=== PATIENT | male | born 1975 | race Caucasian/White ===

== ENCOUNTER 2023-07-26 18:48 | Emergency (ER) | payer OTHER, SELFPAY ==
[2023-07-26 18:59] VITALS: BP 170/98; PULSE 70; RESP 14; TEMP 36.9; O2SAT 98; BMI 29.1
--- NOTE | 2023-07-26 19:39 | CT_ITS ---
The [address] [address] Patient Name: THUAN TRAYLOR MRN: [id number] date: 1975 Sex: M Assigned Patient Location: ER Current Patient Location: Accession/Order Number: [id number] Exam Date: 07/26/2023 20:07 Report Date: 07/26/2023 20:32 At the request of: MARJ SUMMERS Procedure: CT head/brain wo con EXAM: CT scan of the head without contrast. Dose reduction technique used: Automated exposure control and/or adjustment of the mA and/or kV according to patient size and/or use of iterative reconstruction technique. REASON FOR EXAM: Headache COMPARISON: None FINDINGS: No intracranial hemorrhage, mass effect, midline shift, fractures or evidence of acute ischemic infarct. No hydrocephalus. Paranasal sinuses and mastoid air cells are clear. Remainder unremarkable. CT/CT head/brain wo con IMPRESSION: Negative head CT. Electronically authenticated by: CHRISTIANO REDDING Date: 07/26/2023 20:32
--- NOTE | 2023-07-26 19:40 | ED_ITS ---
HPI - Back Pain/Injury General Chief Complaint: Back Pain/Injury Stated Complaint: BACK PAIN Time Seen by Provider: 07/26/23 19:13 Source: patient Mode of arrival: walk-in Limitations: no limitations History of Present Illness HPI Narrative: Patient is a 48-year-old male who presents to the emergency department for multiple pain complaints. Patient is argumentative immediately on my entering the exam room. He does not want to answer any questions, he states that he has been to for pain management physicians in the last 2 years and no one will do anything for him. He states nothing works. He reports chronic pain across the lumbar spine with no new injuries or traumas. He states occasionally the pain radiates to his legs, he reports chronic issues with knee pain. He denies any new focal medical complaints although today he states he feels as though he is being stabbed above the right eye. He has no visual changes, fevers, vomiting. No new falls or injuries. Patient does not have a local primary care provider. [facility] report shows that in the past, The patient has been on medical marijuana, Suboxone as well as multiple narcotic prescriptions From multiple providers. Related Data Home Medications ?Medication ?Instructions ?Recorded ?Confirmed amlodipine 5 mg tablet 10 mg PO DAILY 07/26/23 07/26/23 ergocalciferol (vitamin D2) 1,250 1,250 mcg PO .3 times per week 07/26/23 07/26/23 mcg (50,000 unit) capsule hydrochlorothiazide 25 mg tablet 25 mg PO DAILY 07/26/23 07/26/23 Allergies Allergy/AdvReac Type Severity Reaction Status Date / Time steroids AdvReac Uncoded 07/26/23 18:58 Review of Systems ROS Constitutional Denies: fever or chills Eyes Denies: change in vision or blurry vision Ears, nose, mouth, and throat Denies: throat pain, neck pain, throat swelling or nasal congestion Cardiovascular Denies: chest pain Respiratory Denies: shortness of breath or cough Gastrointestinal Reports: nausea; Denies: vomiting or diarrhea Musculoskeletal Reports: back pain, extremity pain, extremity swelling and joint pain; Denies: neck pain Integumentary/Breast Denies: rash Neurological Reports: headache; Denies: numbness in extremities or weakness in extremities Endocrine Denies: excessive urination Hematologic/Lymphatic Denies: easy bruising Exam Narrative Exam Narrative: Gen.: Awake, alert, in no distress Head: Normocephalic, atraumatic ENT: Moist mucous membranes, Bilateral TMs are clear, no pharyngeal erythema, no nuchal rigidity or meningismus Respiratory: No respiratory distress Extremities: Moves extremities equally, Normal dorsiflexion and plantarflexion of the lower extremities, diffuse tenderness of the lumbar spine with no bony point tenderness or obvious deformity. No CVA tenderness. Patient is able to swing his legs to the side of the bed, sit upright with normal dorsiflexion and plantarflexion, no decrease in sensation to the medial thighs Psych: Normal mood and affect Neuro: No focal neuro deficit Skin: Warm, dry, intact Constitutional Vital Signs, click to edit/add: Last Vital Signs Temp 98.4 F 07/26/23 18:59 Pulse 70 07/26/23 18:59 Resp 14 07/26/23 18:59 BP 170/98 H 07/26/23 18:59 Pulse Ox 98 07/26/23 18:59 O2 Del Method Room Air 07/26/23 18:59 Course Vital Signs Vital signs: Vital Signs Temperature 98.4 F 07/26/23 18:59 Pulse Rate 70 07/26/23 18:59 Respiratory Rate 14 07/26/23 18:59 Blood Pressure 170/98 H 07/26/23 18:59 Pulse Oximetry 98 07/26/23 18:59 Oxygen Delivery Method Room Air 07/26/23 18:59 Temperature 98.4 F 07/26/23 18:59 Pulse Rate 70 07/26/23 18:59 Respiratory Rate 14 07/26/23 18:59 Blood Pressure 170/98 H 07/26/23 18:59 Pulse Oximetry 98 07/26/23 18:59 Oxygen Delivery Method Room Air 07/26/23 18:59 MDM - Back Pain/Injury MDM Narrative Medical decision making narrative: History was difficult to obtain as the patient was refusing to answer questions and was fixated on previous providers in the past not addressing his pain complaints. He had no focal Neuro deficit. He has clear speech, he is able to move all extremities without difficulty. He was sent for head CT which was unremarkable. He was ordered to have Toradol, Norflex and Fioricet for his headache as well as chronic pain symptoms. When the nurse attempted to medicate the patient with these medications, the patient stated You can all go fuck yourselves And ambulated with a steady gait from the emergency department he eloped prior to completion of his treatment or reevaluation of his pain. He was apparently seen at [facility] earlier today and plans to return there. Medical Records Attestation: I reviewed the patient's medical records. Imaging Data CT scan - head: Attestation: I have reviewed the pertinent imaging results. Radiologist's impression: ITS Impressions Head CT 07/26/23 19:39 IMPRESSION: Negative head CT. Electronically authenticated by: CHRISTIANO REDDING Date: 07/26/2023 20:32 Discharge Plan Discharge Stand Alone Forms: Portal Instructions Chief Complaint: Back Pain/Injury Clinical Impression: Chronic pain, Headache Patient Disposition: Left Against Medical Advice Time of Disposition Decision: 20:41 Condition: Good Prescriptions / Home Meds: No Action amlodipine 5 mg tablet 10 mg PO DAILY ergocalciferol (vitamin D2) 1,250 mcg (50,000 unit) capsule 1,250 mcg PO .3 times per week hydrochlorothiazide 25 mg tablet 25 mg PO DAILY Print Language: Vietnamese Referrals: Physician,Non-Staff, MD [Primary Care Provider] - 1 week
--- NOTE | 2023-07-26 20:06 | PC.NURSE ---
pt to imaging at this time via wheelchair.
--- NOTE | 2023-07-26 20:13 | PC.NURSE ---
pt back from imaging at this time. awaiting results.
--- NOTE | 2023-07-26 20:39 | PC.NURSE ---
this RN bedside to medicate pt, upon entry, pt states this is bullshit, those meds dont work pt states I am leaving . pt got up and ambulated out of ED with steady gait independently. PA made aware.
== END 2023-07-26 20:44 | disposition left against medical advice (07) ==
PROVIDERS: Emergency Provider Internal Medicine; Family Provider Family Medicine
DX: R51.9 Headache, unspecified (principal); G89.29 Other chronic pain; Z79.899 Other long term (current) drug therapy; Z53.29 Procedure and treatment not carried out because of patient's decision for other reasons
CPT/HCPCS: 70450; 99284